=== PATIENT | female | born 1980 | race Caucasian/White ===

== ENCOUNTER → 2021-01-03 04:41 | Outpatient (CLI) | payer OTHER, SELFPAY ==
[2021-01-03 20:06] LABS: SARS-CoV-2 RNA PCR Negative
== END ==
PROVIDERS: Visit Provider Obstetrics & Gynecology
DX: Z01.812 Encounter for preprocedural laboratory examination (principal); Z20.822 Contact with and (suspected) exposure to COVID-19
CPT/HCPCS: C9803; U0003; U0005

== ENCOUNTER 2021-01-03 08:51 | Outpatient (CLI) | payer OTHER, SELFPAY ==
[2021-01-03 09:21] LABS: Basophils Absolute Auto 0.1 K/mm3 (0.0-0.1); Basophils Percent Auto 0.9 % (0.2-1.2); Eosinophils Absolute Auto 0.2 K/mm3 (0-0.3); Eosinophils Percent Auto 2.9 % (0-4.4); Hematocrit 29.2 % (37.0-47.0); Hemoglobin 8.3 g/dL (12.0-15.0); Immature Granulocyte Absolute 0.01 K/mm3 (0.00-0.031); Immature Granulocyte Percent A 0.2 % (0-0.5); Lymphocytes Absolute Auto 1.45 K/mm3 (0.9-3.2); Lymphocytes Percent Auto 24.7 % (18.3-44.2); Mean Corpuscular HGB Conc 28.4 g/dl (32-36); Mean Corpuscular Hemoglobin 19.7 pg (26-34); Mean Corpuscular Volume 69.4 fl (80-100); Mean Platelet Volume 9.4 fl (7.4-10.4); Monocytes Absolute Auto 0.5 K/mm3 (0.1-0.6); Monocytes Percent Auto 8.8 % (2.6-8.5); Neutrophils Absolute Auto 3.7 K/mm3 (1.3-6.7); Neutrophils Percent Auto 62.5 % (45.5-73.1); Platelet Count Result 358 k/mm3 (150-375); Red Blood Count 4.21 M/mm3 (4.2-5.4); Red Cell Distribution Width 18.6 % (11.5-14.5); White Blood Count 5.9 K/mm3 (4.5-10.0)
[2021-01-03 09:59] LABS: Hypochromasia 3+ (NORMAL); Large Platelets Present; Platelet Estimate Adequate (Adequate); Target Cells 1+ (NORMAL)
== END 2021-01-03 08:52 | disposition home or self-care (01) ==
LOC: ANHSURGERY 08:55
PROVIDERS: PCP Family Medicine Adolescent Medicine; Visit Provider Obstetrics & Gynecology
DX: Z01.812 Encounter for preprocedural laboratory examination (principal); D21.9 Benign neoplasm of connective and other soft tissue, unspecified
CPT/HCPCS: 36415; 85025; 86850; 86900; 86901

== ENCOUNTER → 2021-01-03 14:02 | Outpatient (CLI) | payer OTHER, SELFPAY ==
--- NOTE | ~2021-01-03 | MM_ITS ---
EXAMINATION: MM screening [facility] BI w [facility] HISTORY: Screening TECHNIQUE: Craniocaudal and mediolateral oblique 3-D tomosynthesis images were obtained and synthetic 2-D images were generated. CAD analysis was submitted and interpreted. COMPARISON: No prior mammogram is available for comparison at this institution. BREAST PARENCHYMAL COMPOSITION: The breasts are heterogeneously dense, which may obscure small masses . FINDINGS: There is no evidence of suspicious mass, calcification, or architectural distortion to sugg est malignancy in either breast. There has been no suspicious interval change. IMPRESSION: 1. No mammographic evidence of malignancy. 2. Recommend routine screening mammography in one year. BI-RADS Category 1: Negative Reviewed, dictated and finalized at location A.
== END ==
PROVIDERS: Visit Provider Obstetrics & Gynecology
DX: Z12.31 Encounter for screening mammogram for malignant neoplasm of breast (principal)
CPT/HCPCS: 77063; 77067

== ENCOUNTER 2021-01-06 03:53 | Day surgery (SDC) | payer OTHER, SELFPAY ==
[2020-12-26 10:59] VITALS: BMI 24.5
--- NOTE | 2021-01-03 12:56 | PM.IMHP ---
H&P: HPI History of Present Illness Date/Time: 01/03/21 12:56 40-year-old 4 para 4 admitted for robotic total vaginal hysterectomy and bilateral salpingectomy. She has multiple uterine fibroids and a history of low-grade LUTHER. She is finished with childbearing and has pain and discomfort and dyspareunia. Risks and benefits were reviewed including but not exclusive of , aspiration pneumonia, bleeding, transfusion, perforation injury to bowel, bladder, ureters, or other internal organs with need for open laparotomy. She received the [employer] handout entitled hysterectomy as well as the [facility] handout. She had all questions answered and asked to proceed Chief Complaint: enlarged uterus an abnormal Paps Review of Systems Review of Systems: All systems reviewed & are unremarkable except as noted in HPI and below PMFSH Surgical History Surgical History History of History of cholecystectomy Family History Family History Other Diabetes mellitus Family history of cardiovascular disease Social History Social History Smoking status: Never smoker Alcohol intake: current Spiritual care concerns: No Meds Home Medications and Allergies Home Medications Medication Instructions Recorded Confirmed Type digestive enzymes 1 tablet PO BID 12/26/20 12/26/20 History Allergies Allergy/AdvReac Type Severity Reaction Status Date / Time No Known Allergies Allergy Unknown Unverified 12/26/20 10:40 Exam Const: General: no acute distress Eyes: General: appearance normal, both eyes and all related structures Neck: Neck: supple and no JVD Thyroid: thyroid normal Resp: Effort & Inspection: normal respiratory effort Auscultation: clear to auscultation bilaterally Cardio: Rate: regular rate Rhythm: regular rhythm GI: Inspection: non-distended GI Palp: Yes Soft to palpation, No Tenderness to palpation present (GI) and No Guarding due to palpation present (GI) Auscultation: normal bowel sounds : External Female Exam: normal external appearance Speculum Exam - Vagina: normal appearance of the vagina Speculum Exam - Cervix: normal appearance of the cervix Bimanual exam- vagina & uterus: enlarged and Uterine tenderness Bimanual Exam- Adnexa, other: no masses Skin: General skin exam: no rashes or lesions noted Extrem: General: normal to inspection and no edema Psych: Mental Status: mental status grossly normal Affect: normal affect Assessment and Plan Additional Plan impression: Symptomatic uterine fibroids an abnormal Pap Plan: Robotic total vaginal hysterectomy and bilateral salpingectomies
--- NOTE | 2021-01-05 12:42 | P.PNAN_ITS ---
Anes - Initial Pre Proc Eval Procedure: Operation Date: 01/06/21 09:30 Proposed Procedures p Robotic Assisted Total Vaginal Hysterectomy With Bilateral Salpingectomy - Elvin Jay MD Date/Time: 01/05/21 12:42 Surgeon: Elvin Jay MD Pre Op Diagnosis: Abnormal pap, fibroids, enlarged uterus, Patient Data Age: 40 Gender: F Height: 1.63 m Weight: 64.9 kg Allergies Allergy/AdvReac Type Severity Reaction Status Date / Time No Known Allergies Allergy Unknown Unverified 01/06/21 08:11 Home Medications Medication Instructions Recorded Confirmed Type digestive enzymes 1 tablet PO BID 12/26/20 01/06/21 History hydrocodone-acetaminophen 1 tablet PO Q4H PRN #30 tablet 01/06/21 Rx Patient hx anesthesia problems: none Family hx anesthesia problems: none [facility] Surgical History Surgical History (Updated 01/05/21 @ 12:42 by Chang Marsh DO) History of History of cholecystectomy History of tubal ligation Family History Family History Other Diabetes mellitus Family history of cardiovascular disease Social History Social History Smoking status: Never smoker Alcohol intake: current Living arrangements: with friend(s) Spiritual care concerns: No Anes - Eval Final PreProcedure Day of Procedure 01/05/21 12:42 Patient weight: normal Heart: regular rate and rhythm Lungs: clear to auscultation and normal air movement Airway: Mallampati scale class 1 Neurological: alert and oriented Last oral intake: >/= 8 hours ASA classification: I Emergent: no Anesthetic plan: proceed Anesthesia type and monitoring: general ETT and standard monitoring Informed Consent: The patient's anesthetic plan and its attendant risks and benefits were discussed with the patient/family/POA. Questions were solicited and answers provided to the satisfaction of the patient/family/POA.
[2021-01-06] VITALS (11 sets, daily range): BP systolic 103–132; BP diastolic 58–77; PULSE 49–85; RESP 11–18; TEMP 36.2–37.4; O2SAT 95–100
--- NOTE | 2021-01-06 06:40 | WPDHPUPDATE1 ---
History and Physical Update Update Date/Time: 01/06/21 06:40 History and Physical has been reviewed, including an updated exam of the patient. There are NO changes in the patient's condition. Risks, benefits, and alternatives have been discussed and questions answered. Patient agrees to proceed with procedure.
[2021-01-06] MEDS: ACETAMINOPHEN 500 MG TABLET 1000 MG PO (07:55)
[2021-01-06] MEDS: LACTATED RINGERS 1,000 ML 30 ML IV CONT ×2 (07:56→11:00)
[2021-01-06] MEDS: KETOROLAC 15 MG/ML VIAL (*BKC) IV PUSH (07:59)
[2021-01-06] MEDS: ceFAZolin 2 GM/D5W 50 ML 2 GM/50 ML BAG IVPB (09:24)
--- NOTE | 2021-01-06 10:52 | PM.PROC ---
Procedure Note - Detailed Date of procedure: 01/06/21 Pre-op diagnosis: Abnormal pap, fibroids, enlarged uterus, Surgeon: Elvin Jay MD Postop diagnosis: Abnormal Pap/uterine fibroids/enlarged uterus Procedure: Robotic total vaginal hysterectomy and bilateral salpingectomies Anesthesia: General endotracheal EBL: 25cc Findings: Fibroid uterus. Tubes status post tubal ligation. Normal-appearing ovaries Complications: None Description of procedure: The patient was prepped draped in normal sterile fashion placed in the dorsal lithotomy position. Under excellent general endotracheal anesthesia weighted speculum placed in posterior fornix of vagina. Anterior lip of the cervix was grasped with a single-tooth tenaculum. Uterus sounded to 10cm. Serial dilatation with fragmented dilators performed followed by passage of the 10. ALYSSA and the 2. And a half cold cup. A 16 Hungarian catheter was placed in the bladder draining clear urine. The weighted speculum and the single-tooth removed. After changing gloves, a supraumbilical incision was made. The Veress needle was passed in the abdomen. The abdomen was filled with CO2 gas [id number]. The 8mm trocar advanced in the abdomen. The downside visualized and no injury seen. The placed was placed and plated Trendelenburg and left and right lateral quadrant incisions were made. The 8mm trocars advanced under direct visualization assuring no injury. A right upper quadrant incision made and the 10mm trocar advanced under direct visualization. The robot was docked. Attention was turned to the auto travel counselor. Multiple adhesions were seen from the omentum to the anterior abdominal wall. Using sharp dissection and cautery these were brought down without difficulty. The uterus was noted to be large and bulky. The tubes were status post tubal ligation. The distal portion of the right and left tube were sharply dissected using cautery and passed off through the right upper quadrant incision. The proximal portions were dissected away from the underlying ovary and brought to the origin a pascual the uterus. Next conserving the left ovary the utero-ovarian ligaments were clamped, burned, cut brought to the level of the round ligament. The round ligament on the left was sharply dissected clamped, burned, cut. Anterior bladder flap was formed by sharply dissecting the bladder away from the uterus and cervix caudally to the opposite round ligament was clamped, burned, cut. Next the utero-ovarian ligament on the right was clamped burned and cut to conserve the right ovary. The left cardinal and broad ligaments were then serially skeletonized. These were clamped, burned, cut and brought down the lateral edge of the uterus and cervix into the uterine vessels could be seen on the left. These were large tortuous and individually clamped,, cut. In like fashion the cardinal broad ligaments on the right were serially skeletonized. These were clamped,, cut and brought down to the level uterine vessels on the right these uterine vessels were also large and tortuous and individually clamped, burned, cut. Blanching of the uterus was seen in a colpotomy incision was made. Cervix uterus and stumps of fallopian tubes removed through the vagina. Blood loss estimated at25cc. The vagina was then closed with continuous running 0V lock from lateral edge to lateral edge and back to the midline. Irrigation undertaken until clear. All pedicles appeared dry. The gas removed from the abdomen after the robot was undocked. The trocars removed and the incisions closed with 4 Monocryl patient went to recovery in satisfactory condition. All sponge, needle, instrument counts were correct. There were no immediate complications
--- NOTE | 2021-01-06 11:22 | SUR.PHASEI ---
1100; UPON ARRIVAL INTO PACU PT GRIMACING. EYELET OPERATOR GAVE FENTANYL IV.
--- NOTE | 2021-01-06 11:38 | SUR.PHASEI ---
PT RESTING QUIETLY DOZING IN INTERVALS. DENIES PAIN. STATES URGE TO VOID. LONG CLEAR YELLOW URINE
[2021-01-06] MEDS: fentaNYL CITRATE INJ (*CRX) 100 MCG/2 ML VIAL 25 MCG IV PUSH ×3 (11:45→12:00)
[2021-01-06] MEDS: DEXTROSE 5%/LACTATED RINGERS 1,000 ML 125 ML IV CONT (13:24)
[2021-01-06] MEDS: KETOROLAC 30 MG/ML VIAL (*BKC) IV PUSH (13:24)
--- NOTE | 2021-01-06 15:50 | ADMGEN ---
1235-This patient, Faby Cummins, was admitted to OB 2nd Floor Room 287-00. Patient/family oriented to hospital policies and general routines including ID bracelet, bed and alarms, visiting hours, pain management, procedures, bathroom and other care routines, personal items, smoking policy, room service/diet, and visiting hours. Information on how to activate the Rapid Response Team has been discussed. Patient/Family are encouraged to report perceived risks to care and to ask questions if they do not understand what they are told or what they should do.
[2021-01-06] MEDS: HYDROcodone/acetaminophen (*CRX) 5-325 MG TABLET 1 TAB PO ×2 (17:24→21:14)
[2021-01-06] MEDS: DOCUSATE SODIUM 100 MG CAPSULE PO (17:24)
--- NOTE | 2021-01-06 18:40 | PC.NURSE ---
1700-RN received order from doctor to bolus patient 500 ml for decreased urine output.
[2021-01-06] MEDS: IBUPROFEN 600 MG TABLET PO (21:14)
== END 2021-01-06 21:18 | disposition home or self-care (01) ==
LOC: ANHSURGERY 07:23 → ANHOB2 12:30
PROVIDERS: Visit Provider Obstetrics & Gynecology
PROC: (CPT 58552; principal; 2021-01-06 09:30)
DX: R10.2 Pelvic and perineal pain (principal); N94.10 Unspecified dyspareunia; N80.0 Endometriosis of uterus; N73.6 Female pelvic peritoneal adhesions (postinfective)
CPT/HCPCS: 58552; S2900; 36415; 85025; 86850; 86900; 86901; 88307; 99199; A9270; C9803; J0690; J1100; J1170; J1885; J2250; J2405; J2704; J2710; J3010; J7030; J7120; J7121; U0003; U0005

== ENCOUNTER → 2021-02-27 03:26 | Outpatient (CLI) | payer OTHER, SELFPAY ==
[2021-02-27 16:50] LABS: SARS-CoV-2 RNA PCR Negative
== END ==
PROVIDERS: Visit Provider Surgery Plastic and Reconstructive Surgery
DX: Z01.812 Encounter for preprocedural laboratory examination (principal); Z20.822 Contact with and (suspected) exposure to COVID-19
CPT/HCPCS: C9803; U0003; U0005

== ENCOUNTER 2021-03-02 01:45 | Day surgery (SDC) | payer OTHER, SELFPAY ==
[2021-02-23 14:13] VITALS: BMI 24.8
--- NOTE | 2021-03-01 12:01 | WPDANESEPPF ---
Anes - Initial Pre Proc Eval Procedure: Operation Date: 03/02/21 10:30 Proposed Procedures p Bilateral Augmentation Mammoplasty - Farhat Benavides MD s Abdominoplasty - Farhat Benavides MD <Zain Hoffman MD - Last Filed: 03/04/21 07:37> Date/Time: 03/01/21 12:01 <Zain Hoffman MD - Last Filed: 03/04/21 07:37> Surgeon: Farhat Benavides MD <Zain Hoffman MD - Last Filed: 03/04/21 07:37> Pre Op Diagnosis: skin laxity, micromastia <Zain Hoffman MD - Last Filed: 03/04/21 07:37> Patient Data Age: 41 Gender: F Height: 1.63 m Weight: 65.77 kg <Zain Hoffman MD - Last Filed: 03/04/21 07:37> Allergies Allergy/AdvReac Type Severity Reaction Status Date / Time No Known Allergies Allergy Unknown Unverified 02/23/21 14:01 <Zain Hoffman MD - Last Filed: 03/04/21 07:37> Home Medications Medication Instructions Recorded Confirmed Type digestive enzymes 1 tablet PO BID 12/26/20 01/06/21 History carisoprodol 350 mg tablet 350 mg PO TID PRN #21 tablet 01/30/21 01/30/21 Rx docusate sodium 100 mg capsule 100 mg PO BID #21 cap 01/30/21 Rx ondansetron HCl 4 mg tablet 4 mg PO Q8H #14 tablet 01/30/21 Rx oxycodone-acetaminophen 5 mg-325 1 tablet PO Q6H PRN #15 tablet 01/30/21 01/30/21 Rx mg tablet <Zain Hoffman MD - Last Filed: 03/04/21 07:37> Patient hx anesthesia problems: none <Chang Marsh DO - Last Filed: 03/02/21 09:57> Family hx anesthesia problems: none <Chang Marsh DO - Last Filed: 03/02/21 09:57> [facility] Surgical History Surgical History: Surgical History (Updated 01/30/21 @ 08:25 by Laura Rosado) History of History of cholecystectomy History of tubal ligation Hx of hysterectomy <Zain Hoffman MD - Last Filed: 03/04/21 07:37> Family History Family History: Family History Other Diabetes mellitus Family history of cardiovascular disease <Zain Hoffman MD - Last Filed: 03/04/21 07:37> Social History Social History: Social History Smoking status: Never smoker Alcohol intake: current Substance use type: does not use Gender identity (if verbalized by the patient): Female Spiritual care concerns: No <Zain Hoffman MD - Last Filed: 03/04/21 07:37> Anes - Eval Final PreProcedure Day of Procedure 03/01/21 12:01 <Zain Hoffman MD - Last Filed: 03/04/21 07:37> Patient weight: normal <Zain Hoffman MD - Last Filed: 03/04/21 07:37> normal <Chang Marsh DO - Last Filed: 03/02/21 09:57> Heart: regular rate and rhythm <Zain Hoffman MD - Last Filed: 03/04/21 07:37> regular rate and rhythm <Chang Marsh DO - Last Filed: 03/02/21 09:57> Lungs: clear to auscultation and normal air movement <Zain Hoffman MD - Last Filed: 03/04/21 07:37> clear to auscultation and normal air movement <Chang Marsh DO - Last Filed: 03/02/21 09:57> Airway: Mallampati scale class II <Zain Hoffman MD - Last Filed: 03/04/21 07:37> Mallampati scale class 1 <Chang Marsh DO - Last Filed: 03/02/21 09:57> Neurological: alert and oriented <Zain Hoffman MD - Last Filed: 03/04/21 07:37> alert and oriented <Chang Marsh DO - Last Filed: 03/02/21 09:57> Last oral intake: >/= 8 hours <Zain Hoffman MD - Last Filed: 03/04/21 07:37> >/= 8 hours <Chang Marsh DO - Last Filed: 03/02/21 09:57> ASA classification: I <Zain Hoffman MD - Last Filed: 03/04/21 07:37> I <Chang Marsh DO - Last Filed: 03/02/21 09:57> Emergent: no <Zain Hoffman MD - Last Filed: 03/04/21 07:37> no <Chang Marsh DO - Last Filed: 03/02/21 09:57> Anesthetic plan: proceed <Zain Hoffman
[2021-03-02] VITALS (10 sets, daily range): BP systolic 101–125; BP diastolic 55–79; PULSE 50–89; RESP 14–18; TEMP 36.9–37.2; O2SAT 96–100
--- NOTE | 2021-03-02 07:41 | ECG_ITS ---
Measurements Intervals Lyons Rate: 50 P: 61 IA: 148 QRS: 84 QRSD: 80 T: 52 QT: 453 QTc: 417 Interpretive Statements SINUS BRADYCARDIA LOW QRS VOLTAGE IN PRECORDIAL LEADS BORDERLINE ECG Electronically Signed On 03-02-2021 8:52:40 CDT by Blake Byrnes D.O.
[2021-03-02 08:44] LABS: Urine Cotinine NEGATIVE
[2021-03-02] MEDS: LACTATED RINGERS 1,000 ML 30 ML IV CONT (09:00)
[2021-03-02 09:15] LABS: Hematocrit 30.3 % (37.0-47.0); Hemoglobin 8.6 g/dL (12.0-15.0)
[2021-03-02] MEDS: SCOPOLAMINE 1.5 MG PATCH TRANSDERM (09:25)
--- NOTE | 2021-03-02 10:04 | WPDHPUPDATE1 ---
History and Physical Update Update Date/Time: 03/02/21 10:04 History and Physical has been reviewed, including an updated exam of the patient. There are NO changes in the patient's condition. Risks, benefits, and alternatives have been discussed and questions answered. Patient agrees to proceed with procedure.
--- NOTE | 2021-03-02 10:35 | W.PM.PROC2 ---
Procedure Note - Detailed Date of Procedure 03/02/21 Pre-op Diagnosis skin laxity, micromastia Post-op Diagnosis same Procedure Performed 1. Bilateral Augmentation Mammaplasty 2. Progressive Tension Abdominoplasty Surgeon Farhat Benavides MD Anesthesia general Findings Bilateral Dual Plane 2 Augmentation Mammaplasty 265 CC Right - REF# [id number] SN [id number] Left - REF# [id number] SN [id number] Abdominal tissue removed - 1494 grams Description of Procedure She is here today for bilateral breast augmentation and abdominoplasty. Previously and again today the risks, benefits, alternatives were discussed in extensive detail. I was very upfront about the risks of wound breakdown leading to loss of skin, open wounds, and need for additional procedures with permanent abdominal deformity. We discussed DVT/PE risks and management. I wanted her to be very realistic about the risks involved as well as expectations. We discussed aftercare and what to monitor for. Made sure answered all of her questions to her satisfaction today and consent was obtained. Marked in the preoperative holding area with their verification. The patient was taken to the operating room placed supine on the operating table. Anesthesia was provided by anesthesiology. A surgical time-out was taken. Breast: We cleansed the skin and 1% lidocaine and 0.25% Marcaine with epinephrine was used anesthetize as a field block. She was prepped and draped in a standard sterile fashion. Tegaderm nipple Vidales were placed. A 15 blade used to make an incision along the inframammary fold. Dissection was continued at 45 degree angle until the chest wall as identified. I incised the pectoralis major along its inferior border and completely released the inferior border leaving the medial border intact. I created a subpectoral pocket in the appropriate dimensions based on our preoperative planning for the implant. I then copiously irrigated with saline solution and verified a strict hemostasis. Next the use a triple antibiotic and Betadine containing solution to irrigate the pocket. I washed my gloves with the triple antibiotic and Betadine solution. We washed the implant immediately upon opening it with this solution and only opened it when we needed it. I used implant funnel and no-touch technique. The implant was introduced into the pocket using the funnel. Having verified positioning of the implant this was closed using 2-0 Vicryl followed by 3-0 Monocryl in a running subcuticular 4-0 Monocryl followed by tissue glue. Abdomen: I placed the patient in a flexed position to verify the upper and lower markings would reach. I then placed her supine. A thorough abdominal examination was completed. Stab incisions were made and used tumescent solution. 5mm basket cannula was used with minimal suction to provide undermining of the upper flap. A 10 blade was used to make the upper incision. I continued dissection down to the level of fascia. Elevated just what was necessary for repair of the diastasis and discontinuous undermining otherwise. I then again flexed the bed to verify the upper skin flap would reach the lower markings without tension. Once verified I placed her supine once again and a 10 blade used to make the lower incision. I elevated up to level the umbilicus and left the umbilicus intact on a well-vascularized stalk. The intervening tissue was removed. A 2 mm blunt cannula with 0.5% bupivacaine with epinephrine was injected deep to the fascia bilaterally. I plicated the diastasis recti using 0 PDO stratafix barbed suture. This was in 2 separate layers using 2 separate sutures as well. I repaired around the umbilicus leaving plenty of room for well-vascularized stalk of the umbilicus with 2-0 PDS. Further lateral to rectus was approximated with multiple layers of 0 PDO stratafix barbed suture. The patient was flexed and starting from superior to inferior began plication usi
[2021-03-02] MEDS: LACTATED RINGERS IRRIG 1,000 ML, LIDOCAINE HCL 1% LOCAL INJ 50 ML, EPINEPHrine HCL INJ ... INFILTRATE (10:45)
[2021-03-02] MEDS: LIDO 1%/EPINEPHRINE 1:100,000 50 ML VIAL 30 ML INFILTRATE (10:45)
[2021-03-02] MEDS: ceFAZolin 2 GM/D5W 50 ML 2 GM/50 ML BAG IVPB (10:45)
[2021-03-02] MEDS: BUPIVACAINE/EPINEPHRINE 0.5% 50 ML VIAL (10:45)
[2021-03-02] MEDS: BUPIVACAINE HCL 0.25% PF 30 ML VIAL INFILTRATE (10:45)
[2021-03-02] MEDS: fentaNYL CITRATE INJ (*CRX) 100 MCG/2 ML VIAL 25 MCG IV PUSH ×2 (14:48→14:53)
--- NOTE | 2021-03-02 15:36 | PC.NURSE ---
This patient, Faby Cmumins, was received from PACU on 03/02/21 at 1536. . Patient/family oriented to unit policies and routines
[2021-03-02] MEDS: MORPHINE SULFATE (*CRX) 2 MG/ML INJ IV PUSH (18:27)
[2021-03-02] MEDS: carisoprodoL (*CRX) 350 MG TABLET PO (18:27)
[2021-03-02] MEDS: DOCUSATE SODIUM 100 MG CAPSULE PO (20:48)
[2021-03-02] MEDS: ENOXAPARIN 40 MG/0.4 ML SYRINGE SUB-Q (20:49)
[2021-03-02] MEDS: oxyCODONE/ACETAMINOPHEN (*CRX) 5-325 MG TABLET PO (20:49)
[2021-03-03 00:20] VITALS: BP 100/56; PULSE 66; RESP 16; TEMP 37.3; O2SAT 98
[2021-03-03] MEDS: carisoprodoL (*CRX) 350 MG TABLET PO ×2 (00:22→05:36)
[2021-03-03] MEDS: MORPHINE SULFATE (*CRX) 2 MG/ML INJ IV PUSH (01:49)
[2021-03-03 04:00] VITALS: BP 104/61; PULSE 65; RESP 16; TEMP 37.1; O2SAT 99
[2021-03-03] MEDS: oxyCODONE/ACETAMINOPHEN (*CRX) 5-325 MG TABLET PO ×2 (04:02→09:43)
--- NOTE | 2021-03-03 06:11 | WPDPN ---
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 Will discharge home. I will see her back. She will call with any questions or concerns. Today we had a lengthy discussion about the care. What monitor for. Activity limitations. We outlined what is an emergency and want to proceed to the emergency room/ dial 911. I made sure answered all of her questions today. We discussed DVT prophylaxis. I will see her back. She will call with any questions or concerns in the meantime. 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 No fevers or chills. No nausea or vomiting. No shortness of breath. No chest pain. No calf tenderness. She has ambulated. She states that she is ready to go home. Review of Systems Review of Systems: All systems reviewed & are unremarkable except as noted in HPI and below Exam Narrative: Exam Narrative: Bilateral breasts are soft. No signs of infection. No hematoma. No seroma. Abdomen is healing well. No signs of infection. No hematoma. No seroma. Good color and capillary refill. No calf tenderness. Negative Homans. Const: General: comfortable, no acute distress, alert and awake; No acute distress Orientation/consciousness: oriented to person HENMT: Head: normal to inspection Ears: external ears normal General nose exam: Normal external nose present Face and sinus: normal facial exam Eyes: General: appearance normal, both eyes and all related structures Periorbital: periorbital findings normal Eyelids: eyelids normal Conjunctivae: conjunctivae normal Neck: Neck: normal visual inspection Chest: Chest palpation & inspection: normal inspection of the chest Resp: Effort & Inspection: normal respiratory effort and able to speak in complete sentences GI: Inspection: normal to inspection Neuro: General: oriented to person Psych: Appearance: grossly normal Mental Status: mental status grossly normal Objective Data Vital Signs Vital Signs: Vital Signs - 24 hr 03/02/21 09:17 03/02/21 14:00 03/02/21 14:23 Temperature 36.9 C 36.9 C Pulse Rate 67 50 L 89 Respiratory Rate 18 15 Blood Pressure 109/67 115/79 125/76 Pulse Oximetry 100 100 03/02/21 14:35 03/02/21 14:43 03/02/21 14:50 Temperature Pulse Rate 73 65 Respiratory Rate 18 14 Blood Pressure 110/76 114/62 Pulse Oximetry 100 100 100 03/02/21 15:05 03/02/21 15:20 03/02/21 15:28 Temperature Pulse Rate 81 76 77 Respiratory Rate 14 14 18 Blood Pressure 114/70 120/72 119/61 Pulse Oximetry 98 96 97 03/02/21 20:00 03/03/21 00:20 03/03/21 04:00 Temperature 37.2 C 37.3 C 37.1 C Pulse Rate 57 L 66 65 Respiratory Rate 16 16 16 Blood Pressure 101/55 L 100/56 L 104/61 Pulse Oximetry 100 98 99 Intake/Output Intake/Output: Intake & Output 02/28/21 03/01/21 03/02/21 03/03/21 23:59 23:59 23:59 23:59 Intake Total 700 Output Total 950 850 Balance -250 -850 Meds/Results Medications: Active Medications Generic Name Dose Route Start Last Admin Trade Name Freq PRN Reason Stop Dose Admin Carisoprodol 350 mg 03/02/21 18:00 03/03/21 05:36 Carisoprodol (*Crx) 350 Mg Tablet PO 350 mg Q6HR AZRA Administration Docusate Sodium 100 mg 03/02/21 21:00 03/02/21 20:48 Docusate Sodium 100 Mg Capsule PO 100 mg Q12HR AZRA Administration Enoxaparin Sodium 40 mg 03/02/21 21:00 03/02/21 20:49 Enoxaparin 40 Mg/0.4 Ml Syringe SUB-Q 40 mg DAILY AZRA Administration Lactated Ringer's 1,000 mls @ 125 mls/hr 03/02/21 14:10 Lr - Lactated Ringers Iv IV CONT .Q8H AZRA Morphine Sulfate 2 mg 03/02/21 14:07 03/03/21 01:49 Morphine
--- NOTE | 2021-03-03 06:14 | PM.DS ---
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 Postoperatively she has done very well. Pain controlled. Ambulating. Tolerating diet. Will discharge home. Follow-up. Time Spent with Patient Time attestation: Total time spent providing and/or coordinating discharge services: Exam Narrative: Exam Narrative: Bilateral breasts are soft. No signs of infection. No hematoma. No seroma. Abdomen is healing well. No signs of infection. No hematoma. No seroma. Good color and capillary refill. No calf tenderness. Negative Homans. Const: General: comfortable, no acute distress, alert and awake; No acute distress Orientation/consciousness: oriented to person HENMT: Head: normal to inspection Ears: external ears normal General nose exam: Normal external nose present Face and sinus: normal facial exam Eyes: General: appearance normal, both eyes and all related structures Periorbital: periorbital findings normal Eyelids: eyelids normal Conjunctivae: conjunctivae normal Neck: Neck: normal visual inspection Chest: Chest palpation & inspection: normal inspection of the chest Resp: Effort & Inspection: normal respiratory effort and able to speak in complete sentences GI: Inspection: normal to inspection Neuro: General: oriented to person Psych: Appearance: grossly normal Mental Status: mental status grossly normal DS: Data Data Completed and Pending Labs on day of discharge: Labs from last 24 hours 03/02/21 03/02/21 08:28 08:28 Hgb 8.6 L Hct 30.3 L Cotinine Negative Discharge Plan Discharge Patient Disposition: Home, Self-Care Discharge Instructions: POST OPERATIVE DISCHARGE INSTRUCTIONS FOR: Breast Augmentation / Abdominoplasty FARHAT BENAVIDES M.D. [facility] [address] [place] [address] [address] for 24 hours after anesthesia and while you are taking pain medication. Take all prescribed medication as directed Diet as tolerated. Begin gentle shoulder rolls and arm stretches 10 times per hour. No lifting or activity that raises blood pressure for 48 hours. Regular walking / ambulation. No showering until directed to. No pools or tubs for 2 weeks. Call with any questions or concerns. Slowly straining up straight as tolerated. No straining or lifting more than 20 pounds for 6 weeks. After 24 hours you may remove the dressings and bra. At this point my may shower. Do not take pain medication before showering as the combination of medication and heat may cause you to feel dizzy or pass out. Let soap and water run over your incisions. Do not scrub or directly wash your incision. Replace the surgical bra and wear it 23 hours per day. Remove the Scopolamine patch that was placed behind your left ear in 72 hours or less. Wash your hands after touching. If you have any questions or concerns, please call the office . If it is after hours you will be directed to the client technical professional exchange. Shortness of breath, chest pain, or other medical emergency dial 911 / proceed to the Emergency Room. Stand Alone Forms: General Discharge Instructions Follow-up/Referrals: Farhat Benavides MD [Physician] - 1 Week Discharge Medications: Continued ondansetron HCl [Zofran] 4 mg tablet 4 mg PO Q8H Qty: 14 RF: 0 docusate sodium [Colace] 100 mg capsule 100 mg PO BID Qty: 21 RF: 0 carisoprodol [Soma] 350 mg tablet 350 mg PO TID PRN (Reason: muscle pain) Qty: 21 RF: 0 oxycodone-acetaminophen [Percocet] 5-325 mg table
[2021-03-03 08:15] VITALS: BP 102/59; PULSE 70; RESP 18; TEMP 37.4; O2SAT 98
--- NOTE | 2021-03-03 08:52 | WPDANESPN ---
Anes - Prog Note Post-Op Date/Time: 03/03/21 08:52 Cardiovascular status: normal Respiratory status: normal Airway patency: baseline Mental status: baseline Post-Op hydration status: normal Vital Signs: Last Vital Signs Temp 37.1 C 03/03/21 04:00 Pulse 65 03/03/21 04:00 Resp 16 03/03/21 04:00 BP 104/61 03/03/21 04:00 Pulse Ox 99 03/03/21 04:00 Pain Score (VAS): 08/28 I/O: Intake & Output 03/02/21 03/03/21 03/03/21 23:59 07:59 15:59 Output Total 450 850 Balance -450 -850 Laboratory Tests 03/02/21 08:28 03/02/21 08:28 Hgb 8.6 L Hct 30.3 L Post-procedural complaints: none Patient Feedback: Patient satisfied with anesthetic care.
[2021-03-03] MEDS: DOCUSATE SODIUM 100 MG CAPSULE PO (09:43)
== END 2021-03-03 10:15 | disposition home or self-care (01) ==
LOC: ANHSURGERY 09:26 → ANHOB2 15:46
PROVIDERS: PCP Family Medicine Adolescent Medicine; Visit Provider Surgery Plastic and Reconstructive Surgery
PROC: (CPT 19325; principal; 2021-03-02 10:30)
PROC: (CPT 19325; 2021-03-02 10:30)
DX: Z41.1 Encounter for cosmetic surgery (principal); N64.82 Hypoplasia of breast; L57.4 Cutis laxa senilis; Z79.899 Other long term (current) drug therapy
CPT/HCPCS: 19325; 15830; 15847; 80307; 85014; 85018; 93005; 99199; A9270; J0171; J0690; J1100; J1170; J1580; J1650; J2250; J2270; J2405; J2704; J3010; J7120